=== PATIENT | male | born 1975 | race Caucasian/White ===

== ENCOUNTER 2021-04-28 14:59 | Inpatient (IN) | payer OTHER ==
[~2021-04-28] VITALS: Ht 167.6 cm; Wt 113.4 kg
[2021-04-28] MEDS ORDERED: LIPOFEN50 MG PO (15:05)
[2021-04-28] MEDS ORDERED: ATACAND32 MG PO (15:05)
[2021-04-28] MEDS ORDERED: CARDURA XL4 MG PO (15:06)
[2021-04-28] MEDS ORDERED: TOPROL XL50 M1 PO (15:07)
--- NOTE | 2021-04-28 15:21 | NUR ---
SE RECIBE PTE ALERTA, ORIENTADO X3, EL CUAL REFIERE TENER PALPITACIONES DESDE HOY. SE REALIZA EKG Y SE PRESENTA A DR. MCKNIGHT. SE UBICA PTE EN CCU CAMA #3.
--- NOTE | 2021-04-28 16:42 | NUR ---
SE RECIBE PTE MASCULINO ALERTA Y ORIENTADO X3,SE COLOCA EN CRITICO ER POR ORDEN DE ,SE CPONECTA A MONITOR CARDIACO CVONSTANTE Y OXIMETRIA CONTINUA,ES EVALUDO POR Y SHERMAN REALIZA ORDENES,SE ORIENTA A PTE SOBRE ORDEN MEDICA,SE JANET MUESTRAS Y SE ENVIAN A LABORATORIO,SE CANALIZA Y COLOCAN 2 H/L PATENTES LIBRES DE EDEMA Y ENROJECIMIENTO,SE ADMINISTRAN MEDICAMENTOS LOS CUALES PTE TOLERA,ES CONSULTAFO POR MEDICINA INTERNA Y ORIENTA A PTE Y A FAMILIAR, ORDENA SE AUMENTE CARDIZEN DE 5ML/HR QUE ESTA AL MOMENTO A 10ML/HR,SE LE NOTIFICA A PTE CON B/P() INDICA SE MANTENGA A 5ML/HR HASTA QUE B/P AUMRNTE,SE MANTIENE A PTE EN VIILANCIA CHAO POR CAMBIOS.
--- NOTE | 2021-04-28 19:03 | NUR ---
SE COLOCA LI H/L A PTE Y SE JANET TROPONINA Y CARDIAC PRO,Y SE ENVIAN A LABORATORIO,PTE Y FAMILIAR REFIEREN [facility]EN [facility] CARDIOVASCULAR,Y SE LE NOTIFICA A ,SHERMAN ORIENTA A AMBOS SOBRE CONDICION DE PTE Y SE COMIENZA A DISMINUIR EL DRIP DE CARDIZEN,SE LE ORIENTA EN VARIAS OCASIONES Y AUN ASI SHERMAN QUIERE FIRMAR RELEVO DE RESPONSABILIDAD PARA IRSE.SE MANTINE A PTE EN VIGILANCIA CHAO POR CAMBIOS. SE REALIZAN S/V
[2021-04-29] MEDS ORDERED: METOPROLOL TART50 MG (10:05)
[2021-04-29] MEDS ORDERED: OPTIMAL D3 M350 MCG (10:05)
[2021-04-29] MEDS ORDERED: CANDESARTAN-HC1 EAC2 (10:05)
== END 2021-05-02 14:27 | disposition home or self-care (01) | DRG 310 ==
LOC: ER 14:59 → ICU-2 20:57 → SURH 20:57
PROVIDERS: ADMIT Internal Medicine; ATTEND Internal Medicine
PROC: 4A12X4Z Monitoring of Cardiac Electrical Activity, External Approach (ICD-10-PCS; 2021-04-29)
PROC: B24BZZZ Ultrasonography of Heart with Aorta (ICD-10-PCS; principal; 2021-04-30)
DX: I48.0 Paroxysmal atrial fibrillation (principal); I10 Essential (primary) hypertension; Z20.822 Contact with and (suspected) exposure to COVID-19; I95.89 Other hypotension